=== PATIENT | female | born 1990 | race Caucasian/White ===

== ENCOUNTER 2019-12-22 05:41 | Day surgery (SDC) | payer MEDICAID, SELFPAY ==
[2019-12-01 10:11] VITALS: BMI 44.6
--- NOTE | 2019-12-01 10:11 | HP_ITS ---
Intake Vital Signs 12/01/19 BMI 44.6 12/01/19 Height 5 ft 2 in 12/01/19 Weight: 270 lb 12/01/19 BMI 49.4 12/01/19 BP 141/92 H 12/01/19 Blood Pressure Location Rt brachial 12/01/19 Position Sitting 12/01/19 Respiration 18 12/01/19 Pulse 83 12/01/19 Pulse Source Monitor 12/01/19 Temp 98.9 F 12/01/19 Temp Source Temporal 12/01/19 Pulse Oximetry (%) 99 12/01/19 Oxygen Delivery Method room air Intake Visit Reasons: UMBILICAL HERNIA Audio Director Required: No Is patient in pain?: No Allergies No Known Allergies Allergy (Verified 11/30/14 21:38) Medications Acidophilus 11/30/14 [History Confirmed 11/30/14] Tomasa 11/30/14 [History Confirmed 11/30/14] levothyroxine 25 mcg capsule 25 mcg PO DAILY 12/01/19 [History] PFSH Medical History Umbilical hernia (Acute) Thyroid disease (Acute) Surgical History No significant past surgical history (Acute) Family History (Updated 12/01/19 @ 10:10 by Shaina Charles) Mother Diabetes High cholesterol Social History (Updated 12/01/19 @ 10:[address] Ricci López MD) Smoking Status: Never smoker second hand exposure: No alcohol intake: never substance use type: does not use caffeine: No what type of physical activity do you participate in: none frequency: does not exercise HPI HPI Surgical H&P: Yes HPI: BRANDEE OLIVIER, is a 28 F who presents to the office today for Evaluation of a hernia at her umbilicus. Patient has had this for many years. It is gradually been getting larger in size. She has had complaints of discomfort in the area but at the present time she is symptom-free. She has had no nausea or vomiting and no change in her bowel habits. Exam Const General: no acute distress, well developed, well hydrated Orientation: oriented to person, oriented to place, oriented to time [facility] Head: normocephalic, atraumatic Ears: external ears normal Mouth: moist mucous membranes Eyes Sclera: sclerae normal Pupils: normal by confrontation Neck Neck: no lymphadenopathy noted Neck mass: No Thyroid: thyroid normal, symmetrical Chest Chest palpation & inspection: normal inspection of the chest Resp Effort & Inspection: normal respiratory effort Auscultation: clear to auscultation bilaterally Percussion: percussion normal Cardio Rate: regular rate Rhythm: regular rhythm GI Palpation: soft, no hepatosplenomegaly, no masses, tender Rectal Exam: other Other: A large periumbilical hernia is identified. It is not completely reducible and does have an incarcerated component to it. It is nontender. The rest of her abdomen is soft Rectal exam deferred. Extrem General: normal to inspection, no clubbing, cyanosis or edema Assessment & Plan Problems 1. Incarcerated umbilical hernia K42.0 Plan My plan is to perform And incarcerated umbilical hernia repair with mesh. The planned surgical procedure was discussed extensively with the patient. The risks, benefits, anticipated outcomes and possible complication were mentioned. The patient understands that all hernia repair surgery has a chance of recurrence and/or chronic post-operative pain. My staff has also explained the procedure in understandable terms and the patient was given the option to take printed material concerning the planned procedure. The patient had the opportunity to ask questions concerning the planned procedure. The patient freely consents to the planned procedure. Coding Level of Care Code Off vis,new,level 3 Diagnoses Incarcerated umbilical hernia K42.0 COVID (Procedure Consent) Procedure Criteria Procedure Criteria: Yes Elective The surgeon/proceduralist and patient have discussed in detail the risk of exposure to and/or potential harm posed by the COVID-19 virus with having a surgery/procedure at this time versus the risk of? delaying the surgery/procedure. It is not possible to know either the risk of delaying the surgery or procedure or chance of getting an infection with perfect accuracy, but a joint decision was made between the patient and the surgeon/proceduralist ?to proceed at this time with the scheduled surgery/procedure as indicated on the consent form. 12/01/19 1012 <Electronically signed by Ricci vazquez MD> Date _ Ricci López MD I have re-examined the patient. There are no clinical changes since date of exam.
[2019-12-22] VITALS (7 sets, daily range): BP systolic 141–159; BP diastolic 79–103; PULSE 90–105; RESP 18–20; TEMP 36.3–37.2; O2SAT 92–98; BMI 50.9
[2019-12-22 06:18] LABS: Internal QC Validated? YES +Cl - CLEAR BKGD; Pregnancy, Urine Negative Negative
[2019-12-22] MEDS: Lactated Ringers 1,000 ML 100 ML IV ×2 (06:49→09:02)
[2019-12-22 07:08] LABS: Thyroid Stim Hormone (TSH) 0.87 uIU/mL (0.358-3.74)
[2019-12-22] MEDS: Cefazolin 2 GM in 0.9% Normal Saline 100 ML IV (07:24)
--- NOTE | 2019-12-22 07:38 | PCM.OPRPT ---
Problem List (1) Incarcerated umbilical hernia Status: Acute Report of Operation Date of Procedure: 12/22/19 Pre-Operative Diagnosis: Incarcerated umbilical hernia Post-Operative Diagnosis: Same Surgery/Procedure Performed:: Repair of incarcerated umbilical hernia with mesh Type of Anesthesia:: General Anesthesiologist: Filipe Al Estimated Blood Loss (mL): < 25 cc Fluids Replaced: 1 l lr Description of Procedure: Patient was brought into the operating room placed in the supine position. Under excellent general trach intubation the abdomen was sterilely prepped and draped in usual fashion. Local was injected infraumbilically curvilinear incision was made. Dissection was carried down towards the fascia patient was noted to have an incarcerated umbilical hernia I dissected it free from the umbilicus and then placed it back into its preperitoneal place. Around the defect I circumferentially went and dissected a preperitoneal plane circumferentially around this defect and was actually quite a large defect I ended up placing a intrarenal ST hernia patch which was 11 cm x 14 cm into the wound. I placed 0 Nurolon's deep to make sure that the mesh laid completely flat and then circumferentially around the fascia I did interrupted #1 Nurolon's I was happy how the mesh laid it seemed to be very flat local was injected. I brought the umbilicus back down to the fascia with 2-0 Vicryl subcu of 2-0 Vicryl was used deep dermal stitches of 3-0 Vicryl in a running 4-0 Monocryl Dermabond was applied [place] cotton was applied sterile dressings were applied and the patient tolerated the procedure well. - Admit VTE Documentation VTE Present on Admission: No VTE Mechan Device Prophylaxis: SCD's VTE Pharm Prophylaxis ordered?: No Reason prophylaxis not ordered:: Treatment Not Indicated [id number]: [id number] Rpr umbil davon block > 5 yr
--- NOTE | 2019-12-22 08:26 | DCINST_ITS ---
Discharge Diet: Light diet - advance as tolerated Discharge Activity: Return to Normal Activity, May Drive - when you are no longer taking narcotic pain medications., May Shower - with the bandage in place 1-2 days after surgery. Lifting Restrictions: 20 pounds for 8 weeks. Additional Activity Instructions:: Climbing stairs is fine, walking is encouraged. Sitting in bed may be uncomfortable. Sitting up using your lateral muscles (sitting up sideways) is usually more comfortable. Do not drive, work heavy equipment of sign legal documents for 24 hours. If your hernia repair was an ingunial repair, you may have scrotal swelling, an ice pack and/or athletic support can provide more comfort. Pain medications may cause nausea, you should typically eat light foods as you take your pain medications. Pain medications may also cause constipation. If you have difficulty with this, discuss with your doctor. Call your doctor if your incision/area has: Continuous Slow Oozing, Sudden Increased Bleeding, Increased Pain/ Swelling, Increased Redness, Foul Smelling Discharge Call your doctor if you observe: Fever of 101 or Higher Suture Line Care: Avoid Pulling/Pushing, Avoid Pinching/Bending Additional Dressing/Incision Instructions:: Leave the operative bandage on for 2-3 days. When you remove the bandage, leave the steri-strips on place until your follow up appointment or they fall off. Allergies/Adverse Reactions: Allergies No Known Allergies Allergy (Verified 12/22/19 06:18) Medications to take at Discharge levothyroxine 25 mcg capsule 25 mcg PO DAILY 12/01/19 Fenugreek Seed Extract [Fenugreek] 500 mg PO DAILY 12/14/19 Tomasa 500 mg PO DAILY 12/14/19 Lactobacillus Acidophilus [Acidophilus] 1 ea PO 12/14/19 Orders to be completed after discharge: Thyroid Stim Hormone (TSH) Time Frame: 12/14/19, Facility: [facility], Location: Laboratory Primary Care Physician: Guera Thurman MD [Primary Care Provider] - Test Results: Test results from this visit will be discussed in further detail at your follow- up appointment, if applicable. Please Follow Up With: Ricci López MD - [phone] When: Plan to have a follow up appointment in 7 days. Call to schedule.
[2019-12-22] MEDS: Bupivacaine Mpf 0.5% 30 ML VIAL (08:29)
== END 2019-12-22 11:21 | disposition home or self-care (01) ==
LOC: SDC 05:44 → AC 05:45
PROVIDERS: Anesthesiology; PCP Internal Medicine; Referring Provider Surgery; Visit Provider Surgery
PROC: (CPT 49587; principal; 2019-12-22 07:15)
DX: K42.0 Umbilical hernia with obstruction, without gangrene (principal); Z11.59 Encounter for screening for other viral diseases; E66.01 Morbid (severe) obesity due to excess calories; Z79.899 Other long term (current) drug therapy; F79 Unspecified intellectual disabilities; E07.9 Disorder of thyroid, unspecified; Z68.42 Body mass index [BMI] 45.0-49.9, adult
CPT/HCPCS: 00750; 49587; 81025; 84443; 87635; 94799; J7120; C1781; J2405; U0003

== ENCOUNTER 2020-03-29 11:50 | Emergency (ER) | payer MEDICAID, SELFPAY ==
[2019-12-29 08:48] VITALS: BMI 50.9
[2020-03-29 11:52] VITALS: BP 159/102; PULSE 93; RESP 18; TEMP 36.3; O2SAT 100; BMI 51.3
--- NOTE | 2020-03-29 12:06 | RAD_ITS ---
STUDY: X-RAY - LUMBAR SPINE REASON FOR EXAM: Female, 29 years old. Fall 2 weeks ago, pain TECHNIQUE: 3 view(s) of the lumbar spine were obtained. COMPARISON: None FINDINGS: Normal lumbar lordosis. There is no substantial scoliosis. There is a normal alignment of the vertebrae. Normal vertebral bodies and endplates. Normal disc space heights. The soft tissue structures are unremarkable. RAD/Lumbar Spine 2 or 3 Views IMPRESSION: Normal x-ray examination of the lumbar spine. Electronically Signed: Chente Dean, at 12:28 EST , Service support ,
--- NOTE | 2020-03-29 12:10 | RAD_ITS ---
STUDY: X-RAY - PELVIS AND RIGHT HIP REASON FOR EXAM: Female, 29 years old. Fall 2 weeks ago, right hip pain TECHNIQUE: 3 views of the pelvis and hip. COMPARISON: None. FINDINGS: There is a non-specific bowel gas pattern. Normal visualized soft tissue structures. Normal bilateral iliac wings, sacroiliac joints and visualized sacrum. Normal bilateral superior and inferior pubic rami. Normal pubic symphysis. Normal bilateral ischial tuberosities. Normal visualized femoral head. Normal acetabulum. Normal hip joint. RAD/HIP, UNI W/ Pelvis 2-3 Views IMPRESSION: Normal x-ray examination of the pelvis and hip. Electronically Signed: Chente Dean, at 12:28 EST , Service support ,
--- NOTE | 2020-03-29 12:52 | ED.VIS.FALL ---
History of Present Illness Chief Complaint: Lower Extremity Injury Narrative: Patient presenting due to concern for a hip or back injury. Approximately a week and a half ago the patient suffered a mechanical fall. Patient is MRDD, difficult to obtain history from the mother who is present states that she has been complaining of right hip pain. Patient has been refusing to go to workshop, secondary to the pain. She has been able to ambulate but with some help. There have been no reports of bowel or bladder incontinence, fevers, unintended weight loss, numbness or weakness. Past Medical History - Allergies and Home Meds Allergies/Adverse Reactions: Allergies No Known Allergies Allergy (Verified 03/29/20 11:52) Primary Care Physician: Guera Thurman MD [Primary Care Provider] - Prior records reviewed: Yes Past Medical History: - - Developmentally delayed Lives: With Family Smoking Status: Never smoker Alcohol: None Drugs: None Review of Systems General: Denies: Chills, Fever, Sweats Eyes: Denies: Visual changes - bilaterally, Diplopia ENT: Denies: Rhinorrhea, Sore throat Cardiovascular: Denies: Chest pain, Palpitations Respiratory: Denies: Dyspnea, Cough, Dyspnea on exertion Gastrointestinal: Denies: Abdominal pain, Nausea, Vomiting, Diarrhea, Melena, Hematochezia Genitourinary: Denies: Dysuria, Hematuria, Frequency Musculoskeletal: Reports: Extremity Pain Skin: Denies: Rash, Wounds Neurological: Denies: Headache, Weakness, Numbness Physical Exam Vital Signs/Narrative: Vital Signs Temp Pulse Resp BP Pulse Ox 03/29/20 11:52 97.4 F L 93 18 159/102 H 100 Inital Vital Signs reviewed: Yes General: Well nourished, Well developed, Obese Head: Normocephalic, Atraumatic Eyes: EOMI Neck: Full ROM Cardiovascular: Regular rate, Regular rhythm Respiratory: No distress, CTA bilaterally Abdomen: Soft, Nontender Back: - - Patient does complain of some upper lumbar tenderness to palpation with no step-offs Extremeties: Patient complains of some pain with range of motion of the right hip with no deformity, no crepitus with range of motion, no warmth, no pain on palpation. Skin: Normal color, No rash Neurological: Alert, Oriented x3 Psychological: Normal affect Diagnostic/Tx/Re-eval Clinical Impression(s) from Imaging Studies Lumbar Spine X-Ray 03/29/20 12:06 IMPRESSION: Normal x-ray examination of the lumbar spine. Electronically Signed: Chente Pangjaclynmarco, at 12:28 EST , Service support , Hip/Pelvis X-Ray 03/29/20 12:10 IMPRESSION: Normal x-ray examination of the pelvis and hip. Electronically Signed: Chente Pangana, at 12:28 EST , Service support , - Medical Decision Making Patient presented with back and hip pain. X-rays by my personal review as well as radiology review, multiple views of the lumbar spine and right hip and pelvis are negative for any acute bony pathology. Patient likely has a contusion, mother will continue with supportive management. ED Disposition - Plan for ED Patient: Disposition: Home or Assisted Living Diagnosis: Contusion of right hip Instructions: ED Mechanical Fall Referrals: Guera Thurman MD [Primary Care Provider] - As Needed
[2020-03-29 13:15] VITALS: BP 129/77; PULSE 62; RESP 15; O2SAT 98
== END 2020-03-29 13:16 | disposition home or self-care (01) ==
PROVIDERS: Emergency Provider Emergency Medicine; PCP Internal Medicine
DX: S70.01XA Contusion of right hip, initial encounter (principal); W19.XXXA Unspecified fall, initial encounter; Y93.9 Activity, unspecified; Y92.9 Unspecified place or not applicable; F79 Unspecified intellectual disabilities
CPT/HCPCS: 72100; 73502; 99282

== ENCOUNTER 2021-05-28 16:11 | Emergency (ER) | payer MEDICAID, SELFPAY ==
[2021-05-28 16:12] VITALS: BP 155/110; PULSE 107; RESP 16; TEMP 36.2; O2SAT 100; BMI 46.4
--- NOTE | 2021-05-28 16:28 | RAD_ITS ---
STUDY: X-RAY - RIGHT HUMERUS REASON FOR EXAM: Female, 30 years old. fall, right arm pain TECHNIQUE: 2 view(s) of the humerus. COMPARISON: None. FINDINGS: Normal visualized humerus. There is no demonstrated fracture or osseous destructive process. There is no demonstrated soft tissue abnormality. RAD/Humerus min 2 Views IMPRESSION: Normal x-ray examination of the humerus. Electronically Signed: Miller Severino MD at 17:34 EST ,
--- NOTE | 2021-05-28 16:28 | RAD_ITS ---
STUDY: X-RAY - RIGHT RADIUS AND ULNA REASON FOR EXAM: Female, 30 years old. fall, right arm pain TECHNIQUE: 2 view(s) of the forearm. COMPARISON: None. FINDINGS: There is no demonstrated soft tissue swelling. Normal visualized radius. Normal visualized ulna. There is no demonstrated acute fracture. RAD/Forearm 2 Views IMPRESSION: Normal x-ray examination of the radius and ulna. Electronically Signed: Miller Severino MD at 17:33 EST ,
--- NOTE | 2021-05-28 16:29 | EX.ED.UPPERE ---
HPI History of Present Illness Chief Complaint: Upper Extremity Injury Narrative Narrative: 30-year-old female who is special needs presenting with right arm pain. Her mother reports that she did not use her arm for lunch today. Patient reportedly had a fall at [employer] however the mother did not see this. She has no obvious deformity or bruising. Patient's mother did not give anything for pain. No reported head injury or LOC. Has been ambulatory. Other than arm pain her mother feels she is acting normally. PFSH PFS Medical History Thyroid disease Umbilical hernia Home Medications levothyroxine 25 mcg capsule 25 mcg PO DAILY 12/01/19 [History Last Taken 03/29/20] Lactobacillus acidophilus 1 ea PO DAILY 12/14/19 [History Last Taken 03/29/20] fenugreek seed extract 500 mg PO DAILY 12/14/19 [History Last Taken 03/29/20] francois (Zingiber officinalis) 500 mg PO DAILY 12/14/19 [History Last Taken 03/29/20] naproxen [Naprosyn] 500 mg PO BID PRN #20 tab 05/28/21 [Rx Last Taken Unknown] Allergy/AdvReac Type Severity Reaction Status Date / Time No Known Allergies Allergy Verified 05/28/21 16:12 Family History Mother Diabetes High cholesterol Surgical History H/O umbilical hernia repair No significant past surgical history Social History Smoking Status: Never smoker second hand exposure: No alcohol intake: never substance use type: does not use caffeine: No what type of physical activity do you participate in: none frequency: does not exercise ROS ROS ED Constitutional Constitutional ED: Denies chills or fever(s) Eyes Eyes: Denies blurry vision or diplopia ENT ENT ED: Denies rhinorrhea or sore throat Cardiovascular Cardiovascular: Denies chest pain or palpitations Respiratory/Chest Respiratory/Chest: Denies cough or dyspnea Gastrointestinal Gastrointestinal: Denies abdominal pain or nausea Genitourinary Genitourinary ED: Denies dysuria or hematuria Musculoskeletal Musculoskeletal: Reports other Details: Right arm pain Integumentary Denies Abrasions or rash Neurologic Neurologic: Denies headache(s) or weakness EXAM Physical Exam Const Vital Signs: 05/28/21 16:12 Temperature 97.2 F L Temperature Source Temporal Pulse Rate 107 H Respiratory Rate 16 Blood Pressure 155/110 H Blood Pressure Mean 125 Pulse Ox 100 Oxygen Delivery Method Room Air Positive well nourished and obese General Appearance ED: NAD Nutritional Appearance: obese HEENT normocephalic and atraumatic Eyes PERRL and EOMs intact bilaterally Resp normal respiratory effort and clear to auscultation bilaterally Cardio regular rate and regular rhythm Extremity Extremity Narrative: No palpable tenderness to palpation of the right upper extremity. No deformity. Patient able to lift her right arm and move it without difficulty. Flexion extension of the elbow is normal. Flexion-extension of the wrist is normal. Right hand is nontender. Neurovascular intact without. MDM MDM MDM Narrative Medical decision making narrative: Patient reportedly had a fall at [employer] today. This is unwitnessed. Mother is concerned she not using her arm. On examination she is able to raise her arm above her head and she able to move both her elbow and her wrist. When palpating her arm I cannot elicit any pain. When I asked the patient if she is in pain she says no. When I asked her where it hurts she points to her forearm. Is difficult to localize the injury so I did obtain x-ray of the humerus, elbow, right forearm. Mother declined analgesia until she knows was going on. X-rays of the right humerus, elbow, forearm on my interpretation showed no acute fractures or other acute pathology. Patient's mother was counseled on this. She is given a prescription for Naprosyn at her mother's request. Patient discharged stable condition. Impression: 1. Fall 2. Right arm contusion Discharge Plan Triage Chief Complaint: Upper Extremity Injury ED Provider: Gilson Martin Dx/Rx/DC Orders Instructions: ED Contusion, Upper Extremity Prescriptions: New naproxen [Naprosyn] 500 mg tablet 500 mg PO BID PRN (Reason: pain) Qty: 20 RF: 0 No Action levothyroxine 25 mcg capsule 25 mcg capsule 25 mcg PO DAILY RF: 0 Lactobacillus acidophilus 1 EACH capsule 1 ea PO DAILY RF: 0 francois (Zingiber officinalis) 500 MG capsule 500 mg PO DAILY RF: 0 fenugreek seed extract 500 MG capsule 500 mg PO DAILY RF: 0 Primary Care Provider: Guera Thurman Referrals: Guera Thurman MD [Primary Care Provider] - Disposition Disposition: Home, Self Care
--- NOTE | 2021-05-28 16:40 | RAD_ITS ---
STUDY: X-RAY - RIGHT ELBOW REASON FOR EXAM: Female, 30 years old. fall, right arm pain TECHNIQUE: 3 view(s) of the elbow. COMPARISON: None. FINDINGS: Normal visualized humerus, radius and ulna. Normal radiocapitellar and ulnotrochlear articulations. The soft tissue structures are unremarkable. There is no demonstrated fracture. RAD/Elbow min 3 Views IMPRESSION: Normal x-ray examination of the elbow. Electronically Signed: Miller Severino MD at 17:34 EST ,
[2021-05-28 18:09] VITALS: RESP 24
== END 2021-05-28 18:09 | disposition home or self-care (01) ==
PROVIDERS: Emergency Provider Student in an Organized Health Care Education/Training Program; PCP Internal Medicine; Visit Provider Student in an Organized Health Care Education/Training Program
DX: S40.021A Contusion of right upper arm, initial encounter (principal); Z68.42 Body mass index [BMI] 45.0-49.9, adult; W19.XXXA Unspecified fall, initial encounter; Y93.9 Activity, unspecified; Y92.22 Religious institution as the place of occurrence of the external cause; E07.9 Disorder of thyroid, unspecified; Z79.899 Other long term (current) drug therapy; E66.9 Obesity, unspecified
CPT/HCPCS: 73060; 73080; 73090; 99282